=== PATIENT | female | born 1925 | race Caucasian/White ===

== ENCOUNTER 2017-10-13 10:16 | Observation (INO) | payer OTHER ==
[~2017-10-13] VITALS: Ht 152.4 cm; Wt 68.3 kg
[~2017-10-13 10:16] MED LIST: ADULT LOW DOSE81 M1 PO; ASPIRIN E.C.81 M1 PO; ATENOLOL100 M1 PO; ATENOLOL100 MG PO; AVAPRO150 MG PO; Bactrim,Septra DS 80 PO; CALCIUM CARBON600 M1 PO; CALCIUM OYSTER500 MG PO; CALTRATE 6001 TABLE2 PO; CENTRUM SILV1 TABLE1 PO; COUMADIN,JANTO2.5 MG PO; CRANBERRY400 MG PO; DULCOLAX10 MG PR; DULCOLAX5 MG PO; FISH OIL 1,0001 EAC4 PO; FISH OIL SOFTG1 EACH PO; GARLIC OIL1000 MG PO; Garlic PO; LOSARTAN POTASS50 MG PO; MULTI VITAMIN1 EACH PO; Maalox, Mylanta PO; Melatonin PO; Milk Of Magnesia,MOM PO; NORVASC10 MG PO; Nucynta PO; Omega III EPA + DHA PO; SENOKOT S,PE1 TABLET PO; Tylenol Regular Stre PO
[2017-10-13 11:40] LABS: HEMATOCRIT 37.6 % (36.0-46.0); HEMOGLOBIN 13.7 G/DL (11.9-15.5); MCH 31.8 PG (29.0-34.0); MCHC 36.4 G/DL (30.0-36.0); MCV 87.2 FL (83-99); PLATELET COUNT 169 K/uL (156-360); RBC DIS.WIDTH-CV 13.5 % (11.8-14.6); RBC DIS.WIDTH-SD 43.3 % (39-53); RED BLOOD COUNT 4.31 M/uL (3.80-5.20)
[2017-10-13 11:46] LABS: CHLORIDE 97 mEq/L (99-109); POTASSIUM 3.6 mEq/L (3.7-5.4); SODIUM 132 mEq/L (136-147)
[2017-10-13 11:47] LABS: GLUCOSE 129 mg/dL (70-99)
[2017-10-13 11:51] LABS: CREATININE 0.6 mg/dL (0.6-1.3); GFR ESTIMATE (CALCULATED) > 59 mL/min/
[2017-10-13 11:52] LABS: UREA NITROGEN (BUN) 15 mg/dL (9-23)
[2017-10-13 11:54] LABS: CREATINE KINASE 115 IU/L (1-294); TOTAL CK 115 IU/L (1-294)
[2017-10-13 12:00] LABS: TROP-I INTERPRETATION NEGATIVE; TROPONIN-I < 0.01 ng/mL (0.0-0.30)
[2017-10-13 12:01] LABS: CK-MB 3.9 ng/mL (0.0-4.9); CKMB RELATIVE INDEX 3.4 (0.0-3.9)
[2017-10-13 12:35] LABS: APPEARANCE CLEAR ((CLEAR)); BILIRUBIN NEGATIVE; BLOOD NEGATIVE; COLOR STRAW ((YELLOW)); GLUCOSE (STRIP) NEGATIVE; KETONES NEGATIVE; LEUKOCYTES NEGATIVE; NITRITE NEGATIVE; PROTEIN (STRIP) NEGATIVE; SPECIFIC GRAVITY 1.006 (1.000-1.030); UROBILINOGEN 0.2 MG/DL (0.2-1.0)
[2017-10-13] MEDS ORDERED: BUSPAR5 MG PO (13:49)
[2017-10-13] MEDS ORDERED: PRESERVISION T1 EACH PO (13:49)
[2017-10-13] MEDS ORDERED: MELATONIN3 MG PO (13:50)
[2017-10-13 16:37] LABS: HDL CHOLESTEROL 74 MG/DL (Desirable>=50); LDL CHOLESTEROL 74 mg/dL (Desirable<100); NON-HDL CHOLESTEROL 89 mg/dL (Desirable<160); TOTAL CHOLESTEROL 163 mg/dL (Desirable<200); TRIGLYCERIDES 75 MG/DL (Normal: <150)
[2017-10-13 16:58] LABS: HEMATOCRIT 36.5 % (36.0-46.0); HEMOGLOBIN 13.2 G/DL (11.9-15.5); MCH 31.4 PG (29.0-34.0); MCHC 36.2 G/DL (30.0-36.0); MCV 86.9 FL (83-99); PLATELET COUNT 165 K/uL (156-360); RBC DIS.WIDTH-CV 13.6 % (11.8-14.6); RBC DIS.WIDTH-SD 43.4 % (39-53); WHITE BLOOD COUNT 10.2 K/uL (4.1-10.2)
[2017-10-13 17:19] LABS: TROP-I INTERPRETATION NEGATIVE; TROPONIN-I < 0.01 ng/mL (0.0-0.30)
[2017-10-13 18:23] VITALS: BP 136/63
[2017-10-13 19:50] VITALS: BP 146/66
[2017-10-13 21:28] LABS: TROP-I INTERPRETATION NEGATIVE; TROPONIN-I < 0.01 ng/mL (0.0-0.30)
[2017-10-14 00:19] VITALS: BP 121/56
[2017-10-14 03:54] VITALS: BP 115/57
[2017-10-14 07:10] VITALS: BP 172/79
[2017-10-14 12:00] VITALS: BP 158/74
[2017-10-14] MEDS ORDERED: METOPROLOL TART75 MG PO (13:17)
[2017-10-14] MEDS ORDERED: ATORVASTATIN CA40 MG PO (13:44)
[2017-10-14] MEDS ORDERED: XARELTO15 MG PO (13:46)
[2017-10-14 15:45] VITALS: BP 171/79
[2017-10-14 19:30] VITALS: BP 166/70
[2017-10-15 00:27] VITALS: BP 164/74
[2017-10-15 04:03] VITALS: BP 142/69
[2017-10-15 07:48] VITALS: BP 181/84
[2017-10-15 11:34] VITALS: BP 142/63
[2017-10-15 12:16] LABS: HEMOGLOBIN A1c (GLYCOHEMOGLOB) 5.1 % (Below 5.7)
[2017-10-15] MEDS ORDERED: XARELTO15 MG PO (15:16)
[2017-10-15 16:06] VITALS: BP 145/73
== END 2017-10-15 18:35 | disposition home or self-care (01) ==
LOC: EME 10:16 → EDOF 13:51 → 4SOUTH 13:51 → ENRESERV 13:54 → 4SOUTH 17:34
PROVIDERS: Emergency Medicine; Hospitalist
DX: G45.9 Transient cerebral ischemic attack, unspecified (principal); I48.91 Unspecified atrial fibrillation; R94.31 Abnormal electrocardiogram [ECG] [EKG]; I10 Essential (primary) hypertension; Z79.82 Long term (current) use of aspirin; M19.90 Unspecified osteoarthritis, unspecified site; R56.9 Unspecified convulsions; Z90.710 Acquired absence of both cervix and uterus; Z96.653 Presence of artificial knee joint, bilateral; Z96.643 Presence of artificial hip joint, bilateral; Z82.49 Family history of ischemic heart disease and other diseases of the circulatory system; Z80.52 Family history of malignant neoplasm of bladder; Z88.5 Allergy status to narcotic agent; Z88.6 Allergy status to analgesic agent
CPT/HCPCS: 70450; 70544; 70549; 70551; 71045; 72125; 80048; 80061; 81003; 82550; 82553; 83036; 83605; 84484; 85027; 87040; 87086; 93005; 93306; 95819; 99281; 99285; G0378; G8978 GP CJ; G8979 GP CI; G8980 CJ; G8987 GO CJ; G8988 CI; G8989 CJ; J1650; J2405; J7030